=== PATIENT | male | born 1980 | race American Indian/Alaskan Native ===

== ENCOUNTER 2017-04-15 13:40 | Emergency (ER) | payer SELFPAY ==
[2017-04-15] MEDS ORDERED: CATAPRES PO ONE ×2 (15:15→16:22)
--- NOTE | 2017-04-15 15:18 | Emergency Department Report ---
Blank Doc - Documentation Documentation: 36 yo male with a history of hypertension and elevated cholesterol presents to the ospital complaining of a bitemporal pounding headache that was rated 7/10 days morning. Headache has improved. Positive associated blurred vision. Patient thinks the headache is related to his elevated blood pressure briefly knocked I was medications for 3 weeks due to insurance lapse. Labs ordered to confirm normal kidney function prior to re-prescribing lisinopril. Patient offered CT head but refused stating that his headache is likely related elevated BP. Clonidine 0.1 mg ordered. Patient to be seen by the mid-level
[2017-04-15] MEDS ORDERED: ZESTRIL PO ONE (15:32)
[2017-04-15 15:41] LABS: Hematocrit 44.9 % (35.5-45.6); Hemoglobin 15.7 gm/dl (11.8-15.2); Mean Corpuscular HGB Conc 35 % (32-34); Mean Corpuscular Hemoglobin 33 pg (28-32); Mean Corpuscular Volume 93 fl (84-94); Platelet Count 239 K/mm3 (140-440); Red Blood Count 4.84 M/mm3 (3.65-5.03); Red Cell Distribution Width 12.7 % (13.2-15.2)
[2017-04-15 15:54] LABS: Bilirubin,Urine NEG (Negative); Blood,Urine SM (Negative); Color,Urine Yellow (Yellow); Nitrite,Urine NEG (Negative); Protein,Urine <15 mg/dL mg/dL (Negative); Urobilinogen,Urine < 2.0 mg/dL (<2.0)
[2017-04-15 15:56] LABS: BUN/Creatinine Ratio 8; Blood Urea Nitrogen 9 mg/dL (9-20); Calcium 9.8 mg/dL (8.4-10.2); Hemolysis Index 13
[2017-04-15 15:58] LABS: Amphetamine Screen,Urine PRESUMPTIVE NEGATIVE; Benzodiazepines Screen,Urine PRESUMPTIVE NEGATIVE; Cannabinoid Screen,Urine PRESUMPTIVE NEGATIVE; Cocaine Screen,Urine PRESUMPTIVE NEGATIVE; Methadone Screen,Urine PRESUMPTIVE NEGATIVE; Opiate Screen,Urine PRESUMPTIVE NEGATIVE
[2017-04-15] MEDS ORDERED: NORCO 7.5/325 PO ONE (16:20)
--- NOTE | 2017-04-15 16:27 | Emergency Department Report ---
ED Headache HPI - General Chief Complaint: Recheck/Abnormal Lab/Rx Stated Complaint: RYAN Time Seen by Provider: 04/15/17 15:10 - History of Present Illness Initial Comments: This is a 36-year-old male nontoxic, well nourished in appearance, no acute signs of distress presents to the ED with c/o of bitemporal headache x2 days. Patient describes headache as aching with level of 8/10. Patient also stated has associated symptoms of blurry vision. Patient describes headache as a gradual onset but denies thunderclap headache. Patient stated develops headache when his blood pressure raises and patient stated has been out of his blood pressure medications for 3 weeks. Patient denies any stiff neck, chest pain, shortness of breath, fever, chills, nausea, vomiting, abdominal pain. Patient states allergies to Sulindac. PMH includes HTN. Timing/Duration: constant Quality: achy Head Injury Location: other (diffuse) Recent Head Trauma: no recent headache/trauma Associated Symptoms: denies symptoms. denies: confusion, fatigue, facial pain, fever/chills, flushing, loss of consciousness, nausea/vomiting, nasal congestion , nasal drainage, numbness in legs/feet, rash, seizures, sinus infection, stiff neck, vision changes, weakness Allergies/Adverse Reactions: Allergies sulindac [Sulindac] Allergy (Verified 04/15/17 13:53) Unknown Home Medications: Ambulatory Orders Lisinopril [Zestril TAB] 20 mg PO QDAY #30 tablet 12/30/15 Lovastatin [Altoprev] 20 mg PO QPM #20 tab.er.24h 12/30/15 Lisinopril 20 mg PO DAILY #30 tablet 04/15/17 Lovastatin [Altoprev] 20 mg PO QPM #30 tab.er.24h 04/15/17 ED Review of Systems ROS: Stated complaint: RYAN Other details as noted in HPI Constitutional: denies: chills, fever Eyes: denies: eye pain, eye discharge, vision change ENT: denies: ear pain, throat pain Respiratory: denies: cough, shortness of breath, wheezing Cardiovascular: denies: chest pain, palpitations Endocrine: no symptoms reported Gastrointestinal: denies: abdominal pain, nausea, diarrhea Genitourinary: denies: urgency, dysuria Musculoskeletal: denies: back pain, joint swelling, arthralgia Skin: denies: rash, lesions Neurological: headache. denies: weakness, paresthesias Psychiatric: denies: anxiety, depression Hematological/Lymphatic: denies: easy bleeding, easy bruising ED Past Medical Hx - Past Medical History Previous Medical History?: Yes Hx Hypertension: Yes Hx CVA: No Hx Heart Attack/AMI: No Hx Congestive Heart Failure: No Hx Diabetes: No Hx Asthma: No Hx COPD: No Additional medical history: High cholesterol - Surgical History Past Surgical History?: No - Social History Smoking Status: Never Smoker Substance Use Type: None - Medications Home Medications: Home Medications Medication Instructions Recorded Confirmed Last Taken Type Lisinopril [Zestril TAB] 20 mg PO QDAY #30 tablet 12/30/15 04/15/17 2 Weeks Ago Rx ~04/01/17 Lovastatin [Altoprev] 20 mg PO QPM #20 tab.er.24h 12/30/15 04/15/17 2 Weeks Ago Rx ~04/01/17 Lisinopril 20 mg PO DAILY #30 tablet 04/15/17 Unknown Rx Lovastatin [Altoprev] 20 mg PO QPM #30 tab.er.24h 04/15/17 Unknown Rx ED Physical Exam - General Limitations: No Limitations General appearance: alert, in no apparent distress - Head Head exam: Present: atraumatic, normocephalic - Eye Eye exam: Present: normal appearance, PERRL, EOMI Pupils: Present: normal accommodation - ENT ENT exam: Present: normal exam, normal orophraynx, mucous membranes moist, TM's normal bilaterally, normal external ear exam - Neck Neck exam: Present: normal inspection, full ROM. Absent: tenderness, meningismus, lymphadenopathy, thyromegaly - Respiratory Respiratory exam: Present: normal lung sounds bilaterally. Absent: respiratory distress, wheezes, rales, rhonchi, stridor, chest wall tenderness, accessory muscle use, decreased breath sounds, prolonged expiratory - Cardiovascular Cardiovascular Exam: Present: regular rate, normal rhythm, normal heart sounds. Absent: irregular rhythm, systolic murmur, diastolic murmur, rubs, gallop - GI/Abdominal GI/Abdominal exam: Present: soft, normal bowel sounds. Absent: distended, tenderness, guarding, rebound, rigid, diminished bowel sounds - Rectal Rectal exam: Present: deferred - Extremities Exam Extremities exam: Present: normal inspection, full ROM, normal capillary refill. Absent: tenderness, pedal edema, joint swelling, calf tenderness - Back Exam Back exam: Present: normal inspection, full ROM. Absent: tenderness, CVA tenderness (R), CVA tenderness (L), muscle spasm, paraspinal tenderness, vertebral tenderness, rash noted - Neurological Exam Neurological exam: Present: alert, oriented X3, CN II-XII intact, normal gait, reflexes normal - Expanded Neurological Exam Expanded Patient oriented to: Present: person, place, time Cranial nerves: EOM's Intact: Normal, Gag Reflex: Normal, Tongue Deviation: Normal, Nystagmus: Normal, Facial Sensation: Normal, Facial Palsy with Forehead Movement: Normal, Facial Palsy without Forehead Movement: Normal Cerebellar function: Finger to Nose: Normal, Heel to Seay: Normal, Romberg: Normal Upper motor neuron: Berny Neglect: Normal, Pronator Drift: Normal, Babinski Sign : Normal, Sensory Extinction: Normal Sensory exam: Upper Extremity Light Touch: Normal, Upper Extremity Pin Prick: Normal, Upper Extremity Temperature: Normal, UE 2 Point Discrimination: Normal, Lower Extremity Light Touch: Normal, Lower Extremity Pin Prick: Normal, Lower Extremity Temperature: Normal, LE 2 Point Discrimination: Normal Motor strength exam: RUE: 5, LUE: 5, RLE: 5, LLE: 5 DTR: bicep (R): 2+, bicep (L): 2+, tricep (R): 2+, tricep (L): 2+, knee (R): 2+ , knee (L): 2+, ankle (R): 2+, ankle (L): 2+ Best Eye Response ([place]): (4) open spontaneously Best Motor Response (Maria Anotnia): (6) obeys commands Best Verbal Response (Maria Antonia): (5) oriented Maria Antonia Total: 15 - Psychiatric Psychiatric exam: Present: normal affect, normal mood - Skin Skin exam: Present: warm, dry, intact, normal color. Absent: rash ED Course Vital Signs 04/15/17 04/15/17 04/15/17 13:44 16:08 16:12 Temperature 98.3 F 98.7 F Pulse Rate 97 H Respiratory 16 18 Rate Blood Pressure 164/112 172/120 Blood Pressure [Right] O2 Sat by Pulse 98 100 Oximetry 04/15/17 04/15/17 04/15/17 16:43 16:50 18:27 Temperature 98.6 F Pulse Rate 86 88 Respiratory 18 18 Rate Blood Pressure 172/120 Blood Pressure 133/98 [Right] O2 Sat by Pulse 99 Oximetry - Reevaluation(s) Reevaluation #1: 04/15/17 16:31 Patient is speaking in full sentences with no signs of distress noted. - Consultations Consultation #1: 04/15/17 16:31 Patient has been consulted with Dr. Sullivan about patient history, physical exam, and labs and examined and screened patient and agrees to ED plan of care and discharge plan of care. ED Medical Decision Making - Lab Data Result diagrams: 04/15/17 15:26 04/15/17 15:26 - Medical Decision Making This is a 36-year-old male that presents with headache and hypertension. Patient is stable and was examined by me and Dr. Sullivan. CT scan of head/brain has been obtained and dictated by the radiologist within normal exam. Patient is notified of xray results with no questions noted by the patient. Normal visual acuity. Patient recevied [place] in the ED which patient symptoms of headche has subsided and resolved. Patient received Catapres and Lisinopril in the ED. Blood pressure decreased and vitals signs stable. Patient is discharge with refill meds on his blood pressure and cholesterol. Patient was instructed to Follow-up with a primary care doctor in 3-5 days or if symptoms worsen and continue return to emergency room as soon as possible. At time of discharge, the patient does not seem toxic or ill in appearance. No acute signs of distress noted. Patient agrees to discharge treatment plan of care. No further questions noted by the patient. Critical care attestation.: If time is entered above; I have spent that time in minutes in the direct care of this critically ill patient, excluding procedure time. ED Disposition Clinical Impression: Hypertension Qualifiers: Hypertension type: unspecified Qualified Code(s): I10 - Essential (primary) hypertension Headache Qualifiers: Headache type: unspecified Headache chronicity pattern: acute headache Intractability: not intractable Qualified Code(s): R51 - Headache Disposition: DC-01 TO HOME OR SELFCARE Is pt being admited?: No Does the pt Need Aspirin: No Condition: Stable Instructions: Acute Headache (ED), Hypertension (ED) Additional Instructions: Follow-up with a primary care doctor in 3-5 days or if symptoms worsen and continue return to emergency room as soon as possible. Keep a daily diary of her blood pressure and presented to primary care doctor. Prescriptions: Lisinopril 20 mg PO DAILY #30 tablet Lovastatin [Altoprev] 20 mg PO QPM #30 tab.er.24h Referrals: PRIMARY CAREMD [Primary Care Provider] - 3-5 Days BRIAN BREWER MD [Staff Physician] - 3-5 Days [facility] [Outside] - 3-5 Days [facility] [Outside] - 3-5 Days Forms: Work/School Release Form(ED)
--- NOTE | 2017-04-15 16:52 | Cat Scan Report ---
FINAL REPORT EXAM: CT HEAD/BRAIN WO CON HISTORY: headache TECHNIQUE: CT of the head was performed without intravenous contrast. PRIORS: None. FINDINGS: The ventricles are normal in shape and position. The ventricles are nondilated. No intracranial hemorrhage, mass, mass effect, midline shift or evidence of acute ischemic infarct. The basilar cisterns are patent. Mild mucosal thickening of the ethmoid air cells is likely congestive or inflammatory. The extracranial soft tissues demonstrate no abnormality. The calvarium is intact. The orbits are intact. The mastoid air cells are clear. IMPRESSION: 1. No acute intracranial abnormality. 2. Mucosal thickening of the ethmoid sinuses is likely congestive or inflammatory.
[2017-04-15 18:27] VITALS: BP 133/98
== END 2017-04-15 18:36 | disposition home or self-care (01) ==
LOC: ED 13:40
DX: I10 Essential (primary) hypertension (principal); E78.00 Pure hypercholesterolemia, unspecified; Z88.8 Allergy status to other drugs, medicaments and biological substances
CPT/HCPCS: 36415; 70450; 80048; 80307; 81001; 85027; 99284

== ENCOUNTER 2017-08-12 16:54 | Emergency (ER) | payer SELFPAY ==
[2017-08-12 17:33] VITALS: BP 144/98
[2017-08-12] MEDS ORDERED: ZESTRIL PO ONE (18:00)
--- NOTE | 2017-08-12 18:07 | Emergency Department Report ---
ED Recheck HPI - General Chief Complaint: Medical Clearance Stated Complaint: BLOOD PRESSURE HIGH Time Seen by Provider: 08/12/17 18:00 Source: patient Mode of arrival: Ambulatory Limitations: No Limitations - History of Present Illness Initial Comments: This is a 37-year-old -Citizen Of [place] male who presents for refills on blood pressure medication. Patient has a history of hypertension and hyperlipidemia. He is currently taking lisinopril 20 mg by mouth daily. Patient reports losing his job a couple months back and have not been able to get an appointment with [facility] for refills. He, [facility] today with another message and no one still hasn't called him back. He took his blood pressure at home was 167/105 and he is concerned. He has been off medication for 3-4 days. States medication controls blood pressure without side effects. Denies dizziness, chest pain, palpitations, shortness of breath, and visual changes. MD Complaint: medication refill request -: days(s) (3-4 days) Returns Today for: request for prescription Symptoms Since Prior Visit: no new symptoms Context: ran out of medication Associated Symptoms: none - Related Data Previous Rx's Medication Instructions Recorded Last Taken Type Lisinopril [Zestril TAB] 20 mg PO QDAY #30 tablet 12/30/15 2 Weeks Ago Rx ~04/01/17 Lovastatin [Altoprev] 20 mg PO QPM #20 tab.er.24h 12/30/15 2 Weeks Ago Rx ~04/01/17 Lisinopril 20 mg PO DAILY #30 tablet 04/15/17 Unknown Rx Lovastatin [Altoprev] 20 mg PO QPM #30 tab.er.24h 04/15/17 Unknown Rx Lisinopril 20 mg PO DAILY #30 tablet 08/12/17 Unknown Rx Allergies Allergy/AdvReac Type Severity Reaction Status Date / Time sulindac [Sulindac] Allergy Unknown Verified 04/15/17 13:53 ED Review of Systems ROS: Stated complaint: BLOOD PRESSURE HIGH Other details as noted in HPI Constitutional: denies: chills, fever Respiratory: denies: cough, shortness of breath, wheezing Cardiovascular: denies: chest pain, palpitations Gastrointestinal: denies: abdominal pain, nausea, diarrhea Neurological: denies: headache, weakness, numbness, paresthesias Psychiatric: denies: anxiety, depression ED Past Medical Hx - Past Medical History Hx Hypertension: Yes Hx CVA: No Hx Heart Attack/AMI: No Hx Congestive Heart Failure: No Hx Diabetes: No Hx Asthma: No Hx COPD: No Additional medical history: High cholesterol - Social History Smoking Status: Never Smoker Substance Use Type: None - Medications Home Medications: Home Medications Medication Instructions Recorded Confirmed Last Taken Type Lisinopril [Zestril TAB] 20 mg PO QDAY #30 tablet 12/30/15 04/15/17 2 Weeks Ago Rx ~04/01/17 Lovastatin [Altoprev] 20 mg PO QPM #20 tab.er.24h 12/30/15 04/15/17 2 Weeks Ago Rx ~04/01/17 Lisinopril 20 mg PO DAILY #30 tablet 04/15/17 Unknown Rx Lovastatin [Altoprev] 20 mg PO QPM #30 tab.er.24h 04/15/17 Unknown Rx Lisinopril 20 mg PO DAILY #30 tablet 08/12/17 Unknown Rx ED Physical Exam - General Limitations: No Limitations General appearance: alert, in no apparent distress - Respiratory Respiratory exam: Present: normal lung sounds bilaterally. Absent: respiratory distress - Cardiovascular Cardiovascular Exam: Present: regular rate, normal rhythm, normal heart sounds. Absent: systolic murmur, diastolic murmur, rubs, gallop - GI/Abdominal GI/Abdominal exam: Present: soft, normal bowel sounds. Absent: organomegaly, mass - Neurological Exam Neurological exam: Present: alert, oriented X3, normal gait - Psychiatric Psychiatric exam: Present: normal affect, normal mood - Skin Skin exam: Present: warm, dry, intact, normal color. Absent: rash ED Course Vital Signs 08/12/17 17:28 Temperature 97.8 F Pulse Rate 92 H Respiratory 18 Rate Blood Pressure 144/98 O2 Sat by Pulse 97 Oximetry ED Recheck MDM - Differential Diagnosis Prescription Refill(s) - Medical Decision Making This is a 37 y.o. male that presents for refills on lisinopril. History of HTN and hyperlipidemia. Patient is stable and was examined by me. Patient off lisinopril 20 mg po daily for a few days. Given lisinopril 20 mg po once while in the ER. Blood pressure 144/98 and asymptomatic. Refilled lisinopril 20 mg po daily and follow up with PCP in 1 week. Discussed plan with patient and agreed to plan. No further questions noted by the patient. Discharged home in stable condition. Follow up with PCP in 1 week. Critical care attestation.: If time is entered above; I have spent that time in minutes in the direct care of this critically ill patient, excluding procedure time. ED Disposition Clinical Impression: Asymptomatic hypertension Hypertension Qualifiers: Hypertension type: essential hypertension Qualified Code(s): I10 - Essential ( primary) hypertension Disposition: - TO HOME OR SELFCARE Is pt being admited?: No Does the pt Need Aspirin: No Condition: Stable Instructions: Hypertension (ED) Additional Instructions: Encourage stop smoking to reduce cardiovascular risk. Moderate caffeine consumption is acceptable. Begin and maintain aerobic exercise, with a goal of at least 30 minutes of moderate intensity, dynamic aerobic exercise (walking, jogging, cycling, or swimming) 5 days per week to total 150 minutes as tolerated or recommended by a physician. Take medication daily as prescribed. Follow up with Primary Care Provider in 1 week. Prescriptions: Lisinopril 20 mg PO DAILY #30 tablet Referrals: [facility] [place] [facility] [place] - 3-5 Days [facility] [Outside] - 3-5 Days [facility] [Outside] - 3-5 Days Forms: Accompanied Note Time of Disposition: 18:09 Print Language: ROMANSH
== END 2017-08-12 18:15 | disposition home or self-care (01) ==
LOC: ED 16:54
DX: I10 Essential (primary) hypertension (principal); E78.00 Pure hypercholesterolemia, unspecified; Z88.8 Allergy status to other drugs, medicaments and biological substances
CPT/HCPCS: 99282